=== PATIENT | female | born 1960 | race Caucasian/White ===

== ENCOUNTER 2017-01-14 19:03 | Emergency (ER) | payer OTHER ==
[2017-01-14 19:16] VITALS: BP 163/82; PULSE 85; RESP 16; TEMP 97.9; O2SAT 95
[2017-01-14] MEDS ORDERED: predniSONE 20 MG TAB PO ONE (19:25)
--- NOTE | 2017-01-14 19:30 | UCPHY ---
H & P Patient Type: New Chief Complaint Nursing Narrative: Itchy, red bilat eyelids x 2 days after applying eyelash extension. Also c/o white discharge. Denies vision changes, itching/swelling of throat/tongue. Time Seen by Provider: 01/14/17 19:18 HPI/ROS: CHIEF COMPLAINT: Eyelid irritation HISTORY OF PRESENT ILLNESS: The patient is a 56-year-old female who comes to the Urgent Care complaining of bilateral upper eyelid irritation. She states that 2 days ago she had eyelid extensions placed. Soon after they were put in place she began having itchiness and erythema and whitish discharge in both eyes. She had them removed this morning. Her symptoms have improved to some degree. She still has an itching sensation. The swelling is decreased. No vision changes. No conjunctival injection. REVIEW OF SYSTEMS: Constitutional: denies: chills, fever, recent illness, recent injury EENTM: See HPI Respiratory: denies: cough, shortness of breath Cardiac: denies: chest pain, irregular heart rate, lightheadedness, palpitations Gastrointestinal/Abdominal: denies: abdominal pain, diarrhea, nausea, vomiting, blood streaked stools Genitourinary: denies: dysuria, frequency, hematuria, pain Musculoskeletal: denies: joint pain, muscle pain Skin: denies: lesions, rash, jaundice, bruising Neurological: denies: headache, numbness, paresthesia, tingling, dizziness, weakness Hematologic/Lymphatic: denies: blood clots, easy bleeding, easy bruising Immunologic/allergic: denies: HIV/AIDS, transplant EXAM: GENERAL: Well-appearing, well-nourished and in no acute distress. HEAD: Atraumatic, normocephalic. EYES: Upper eyelids slightly inflamed and swollen. No significant discharge appreciated. Pupils equal round and reactive to light, extraocular movements intact, sclera anicteric, conjunctiva are normal. ENT: TMs normal, nares patent, oropharynx clear without exudates. Moist mucous membranes. NECK: Normal range of motion, supple without lymphadenopathy or JVD. LUNGS: Breath sounds clear to auscultation bilaterally and equal. No wheezes rales or rhonchi. HEART: Regular rate and rhythm without murmurs, rubs or gallops. ABDOMEN: Soft, nontender, normoactive bowel sounds. No guarding, no rebound. No masses appreciated. BACK: No CVA tenderness, no spinal tenderness, step-offs or deformities EXTREMITIES: Normal range of motion, no pitting or edema. No clubbing or cyanosis. NEUROLOGICAL: Cranial nerves II through XII grossly intact. Normal speech, normal gait. 5/5 strength, normal movement in all extremities, normal sensation PSYCH: Normal mood, normal affect. SKIN: Warm, dry, normal turgor, no visible rashes or lesions. Source: Patient Exam Limitations: No limitations - Personal History Current Tetanus Diphtheria and Acellular Pertussis (TDAP): Yes Tetanus Vaccine Date: within 10 years - Medical/Surgical History Hx Asthma: No Hx Chronic Respiratory Disease: No Hx Diabetes: No Hx Cardiac Disease: No Hx Renal Disease: No Hx Cirrhosis: No Hx Alcoholism: No Hx HIV/AIDS: No Hx Splenectomy or Spleen Trauma: No Other PMH: intussusception as , hypothyroidism - Family History Significant Family History: No pertinent family hx - Social History Smoking Status: Never smoked Alcohol Use: Sober Drug Use: None Constitutional: Initial Vital Signs Temperature (C) 36.6 C 01/14/17 19:13 Heart Rate 85 01/14/17 19:13 Respiratory Rate 16 01/14/17 19:13 Blood Pressure 163/82 H 01/14/17 19:13 O2 Sat (%) 95 01/14/17 19:13 O2 Delivery Mode Room Air Allergies/Adverse Reactions: morphine Allergy (Intermediate, Verified 01/14/17 19:16) Hives Home Medications: Medication Instructions Recorded Levothyroxine 01/14/17 predniSONE 60 mg PO DAILY #9 tab 01/14/17 Medical Decision Making ED Course/Re-evaluation: The patient's symptoms are consistent with a topical allergy. I will start her on a prednisone burst and new encouraged antihistamines. She has been taking some Benadryl at home with moderate improvement. Also discussed Visine allergy drops. I do not see any evidence of conjunctivitis or foreign body or abrasion. She declines further workup or testing at this time. Differential Diagnosis: Partial list of the Differential diagnosis considered include but were not limited to; allergic reaction, blepharitis, conjunctivitis and although unlikely based on the history and physical exam, I also considered foreign body , abrasion. I discussed these differential diagnoses and the plan with the patient as well as the usual and expected course. The patient understands that the diagnosis is provisional and that in medicine we are not always correct and that further workup is often warranted. Usual and customary warnings were given. All of the patient's questions were answered. The patient was instructed to return to the emergency department should the symptoms at all worsen or return, otherwise to followup with the physician as we discussed. - Data Points Medications Given: Discontinued Medications Prednisone (Prednisone) 60 mg PO EDNOW ONE Stop: 01/14/17 19:26 Last Admin: 01/14/17 19:39 Dose: 60 mg Departure - Departure Disposition: Home, Routine, Self-Care Clinical Impression: Allergic reaction Qualifiers: Encounter type: initial encounter Qualified Code(s): T78.40XA - Allergy, unspecified, initial encounter Condition: Fair Instructions: General Allergic Reaction (ED) Additional Instructions: Continue taking 50 mg of Benadryl every 6 hours or other nondrowsy antihistamine. Continue using Visine allergy drops. Referrals: ROSA RAMIREZ [Primary Care Provider] - As per Instructions Prescriptions: predniSONE 60 mg PO DAILY #9 tab - PQRS PQRS Measurement: 134: Depression screening and followup, PRIME MD-PHQ2 (12 years and older) Over the last 2 weeks, how often have you been bothered by any of the following problems? 1. Feeling down, depressed, or hopeless? 2. Little interest or pleasure in doing things? Patient answered no to both 1 and 2 130: Documentation of medications. Reviewed all patient medications, doses, route and frequency. 226: Do you smoke? No. 47: 65 and older: Advanced care planning. Patient designates surrogate decision maker as spouse . Patient has advanced directive. 51: 18 years old and older with diagnosis of COPD, spirometry performance. Spirometry not performed; equipment not available. 52: 18 years old and older with COPD and symptoms of COPD or FEV1<60% predicted prescribed a B Agonist. Not applicable
== END 2017-01-14 19:41 | disposition home or self-care (01) ==
LOC: CED 19:03
DX: T78.40XA Allergy, unspecified, initial encounter (principal); E03.9 Hypothyroidism, unspecified
CPT/HCPCS: G0463-PO